=== PATIENT | female | born 1940 | race Caucasian/White ===

== ENCOUNTER 2016-06-28 14:15 | Inpatient (IN) | payer MEDICARE ==
[~2016-06-28] VITALS: Ht 167.6 cm; Wt 147.6 kg
[2016-06-28] VITALS (10 sets, daily range): BP systolic 116–160; BP diastolic 59–69; PULSE 64–100; RESP 18–26; O2SAT 92–96
--- NOTE | 2016-06-28 14:16 | ED.REPORT ---
HPI-General Illness Date of Service June 28, 2016 ED Provider: Arlen Maxwell MD Patient is a 76 year old female with a history of atrial fibrillation and hypertension who presents to the ED due to shortness of breath. Associated symptoms include fever, dyspnea on exertion, weakness, diaphoresis and fatigue for the past 3 days. She denies chest pain. The patient states that her shortness of breath has since resolved. Prior to arrival the patient was in respiratory distress and on C-pap and continues to be on C-pap in the ED. Nursing Notes Stated Complaint: POSS SEPSIS Nursing Notes Reviewed: Yes Allergies: Coded Allergies: iodine (Verified Allergy, Severe, "swelling", 06/28/16) Penicillins (Verified Allergy, Unknown, 06/28/16) Sulfa (Sulfonamide Antibiotics) (Verified Allergy, Unknown, 06/28/16) Dyer (Verified Allergy, Unknown, 06/28/16) coconut (Verified Allergy, Unknown, 06/28/16) latex (Verified Allergy, Unknown, 06/28/16) pineapple (Verified Allergy, Unknown, 06/28/16) Scheduled Aspirin (Aspirin) 325 Mg Tablet 325 MG PO DAILY Atenolol (Atenolol) 25 Mg Tablet 25 MG PO DAILY Atenolol (Atenolol) 25 Mg Tablet 50 MG PO QPM Atorvastatin Calcium (Atorvastatin Calcium) 80 Mg Tablet 80 MG PO HS Chlorthalidone (Chlorthalidone) 25 Mg Tablet 25 MG PO DAILY Cholecalciferol (Vitamin D3) (Vitamin D3) 5,000 Unit Tablet 5,000 UNIT PO DAILY Citalopram (Citalopram) 40 Mg Tablet 40 MG PO DAILY Cranberry Extract (Cranberry) 250 Mg Capsule 250 MG PO DAILY Cyanocobalamin/Folic Acid (Vitamin A64-Xmrgk Acid Tablet) 1 Each Tablet 1 EACH PO DAILY Gluc 2Kcl/Chondr/Jacinto Hy/Hy AC (Glucosamine & Chondroitin Cap) 1 Each Capsule 1 EACH PO DAILY Levothyroxine (Levothyroxine) 150 Mcg Tablet 150 MCG PO DAILY Lisinopril (Lisinopril) 40 Mg Tablet 40 MG PO DAILY Metformin (Metformin) 500 Mg Tablet 1,000 MG PO QAM Metformin (Metformin) 500 Mg Tablet 1,500 MG PO QPM Scheduled PRN Alprazolam (Alprazolam) 0.25 Mg Tablet 0.125 MG PO BID PRN PRN For Anxiety or Agitation Loratadine (Claritin) 10 Mg Capsule 10 MG PO DAILY PRN PRN allergies Ranitidine (Ranitidine) 300 Mg Tablet 300 MG PO HS PRN PRN For Dyspepsia or Heartburn Triamcinolone Acetonide (Nasacort) 10.8 Ml [place] 1 SPRAY NOSTRIL DAILY PRN PRN allergies General Time Seen by MD: 14:16 Chief Complaint Other (shortness of breath) Hx Obtained From: Patient, EMS Arrived By: Ambulance Sudden in Onset?: Yes Onset Occurred: Just prior to arrival Symptom Duration: Since onset Associated with: Reports: Diaphoresis, Weakness Recent Healthcare: No recent hospitalization, Recent doctor visit Past Medical History Past Medical History Reports: Hypertension Reports: Atrial fibrillation Past Surgical History Reports: Hysterectomy Ambulatory Status Wheelchair Review of Systems Full Review of Systems Constitutional: Reports: Fatigue, Fever, Weakness - generalized Respiratory: Reports: Shortness of breath, Denies: Non-productive cough Cardiovascular: Denies: Chest pain, Dyspnea on exertion Skin: Reports Diaphoresis Complete sys rev & neg: except as marked. Physical Exam Vital Signs Vital Signs Date Time Temp Pulse Resp B/P Pulse Ox O2 Delivery O2 Flow Rate FiO2 06/28/16 16:47 73 26 116/59 96 BiPAP 06/28/16 16:06 36.6 81 21 119/67 93 BiPAP 06/28/16 15:31 97 25 140/69 94 BiPAP 06/28/16 14:30 22 93 40 06/28/16 14:23 41 100 26 92 Room Air General/Constitutional: Awake, Alert Appearance / Presentation: Positive: Obese, morbidly, Pale face is flushed aspirates while drinking water from a straw Head / Eyes: Atraumatic, Normocephalic, PERRL, EOMI Resp Distress / Stridor: Positive: Resp distress moderate Wheezing / Retractions: Positive: Wheeze insp/exp diffuse Cardiovascular: Regular rhythm, Heart sounds NL, No murmurs Heart Rate / Rhythm: Positive: Tachycardia Abdomen: Atraumatic, BS normoactive exam was challenging due to patient's obesity Lower Extremity / Pelvis / MS: Atraumatic profusing to her lower extremities 2+ bilateral chronic edema Skin: Atraumatic, Color NL, No rash Color / Condition: Positive: Diaphoresis present Neurologic: Oriented X3, Speech NL, No motor deficits, No sensory deficits globally weak Psychiatric: Affect NL, Mood NL Interpretation & Diagnostics Lab Results Interpretation Result Diagram: 06/29/16 0330 06/29/16 0330 Test 06/28/16 14:23 06/28/16 14:33 06/28/16 15:00 06/28/16 15:13 Total Bilirubin 0.6mg/dL (0.0-1.2) Aspartate Amino Transf (AST/SGOT) 30U/L (0-50) Alanine Aminotransferase (ALT/SGPT) 19U/L (0-32) Alkaline Phosphatase 58U/L (25-165) Troponin T < 0.010ug/L (0.0-0.011) Pro-B-Type Natriuretic Peptide 1376pg/mL (0-738) Total Protein 7.7g/dL (6.4-8.4) Albumin 3.8g/dL (3.4-5.0) Procalcitonin 0.77ng/mL (0.00-0.08) Hemoglobin A1c 6.3% (4.8-5.6) Urine Legionella pneumophilia Ag Negative (Negative) Urine Color Yellow (YELLOW) Urine Appearance Cloudy (CLEAR,HAZY) Urine pH 6.5 (5.0-8.0) Urine Specific [place] 1.020 (1.003-1.035) Urine Protein 300mg/dL (NEG,TRACE) Urine Glucose (UA) Negativemg/dL (NEGATIVE) Urine Ketones Negativemg/dL (NEGATIVE) Urine Occult Blood Large (NEGATIVE) Urine Nitrite Negative (NEGATIVE) Urine Bilirubin Negative (NEGATIVE) Urine Urobilinogen Normalmg/dL (NORMAL) Urine Leukocyte Esterase Large (NEGATIVE) Urine RBC 3-10/hpf (0-2) Urine WBC >50/hpf (0-5) Urine Epithelial Cells Occasional/hpf (NONE-MOD) Urine Crystals None seen (NONE SEEN) Urine Bacteria Few/hpf (NONE-FEW) Urine Hyaline Casts None/lpf (NONE) Urine Granular Casts None seen (NONE SEEN) Urine Waxy Casts None seen (NONE SEEN) Urine Red Blood Cell Casts None seen (NONE SEEN) Urine White Blood Cell Casts None seen (NONE SEEN) Urine Mucus None seen (None Seen) Urine Trichomonas None seen (NONE SEEN) Urine Yeast None (NONE SEEN) Urinalysis Comment None Urine Culture Reflexed Indicated Lab Results Interpretation: BLOOD GAS REPORT: pH 7.36/pCO2 36/pO2 75.5/cHCO3 (P) 19.9/ cBase (B) -4.4 ECG Interpretation ECG Interpretation: no acute ischemia 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 Chronic elevation of the right hemidiaphragm. Dictated by: Wellington Chiang M.D. on 06/28/2016 at 15:03 Approved by: Wellington Chiang M.D. on 06/28/2016 at 15:05 View: Portable, 1 view Interpretation / Wet Read by: Interpret - Radiologist Re-Eval/Medical Decision Med Decision/Clinical Course Patient arrives septic with respiratory failure reportedly having vomiting, right upper quadrant pain over the last few days, as well as associated cough and generalized weakness. I assumed care of this patient prepped the previous physician who had initiated a sepsis workup. Antibiotics were initiated for community-acquired pneumonia after blood cultures were given. Chest x-ray is not concerning for pneumonia, she does have a urinary tract infection which may explain the right-sided flank plain. The case is discussed with the admitting doctor, Augustine Waters, who agrees to come see the patient. Initially CT scans with IV contrast were ordered to better delineate the cause of these symptoms however given the documented contrast allergy the decision is to hold off on these for now and allow the medicine team to evaluate the patient. Time of Eval: 15:30 Re-Evaluation/Progress Note: Blood pressure is 140 systolic, respiratory rate still in the high 20s to low 30s however the patient is comfortable on BiPAP. Repeat history and physical exam performed. Discussed plan for admission and CT scanning. Time of Eval: 15:26 Patient Status: Condition improved Re-Evaluation/Progress Note: Patient is rechecked. She is informed of the plan to obtain a CT and admit to the hospital. All questions are addressed. Consultation : Referral / Consult Name: Abhay Waters MD Consulted With: Hospitalist Call Returned at: 15:10 Tooling Specialist: Will see patient Note: 1611, in ER evaluating patient Counseled Regarding: Diagnosis, Lab results, Need for admission Discharge & Departure Shift Change Sign-Out Patient Care Transferred: Yes Discussed Complaint(s): Yes Laboratory Evaluation: Lab evaluation discussed Imaging Studies: Imaging discussed Primary Impression: Sepsis Additional Impressions: Urinary tract infection Respiratory failure Disposition: ADMITTED TO HOSPITAL Discharge Condition All VS Reviewed: Yes Condition: Stable Referrals: Josy Hines MD (PCP) Care Transferred to: Dr. Spain Care Transferred at: 15:13 Crit Care Except Billable Proc Time Spent: 30-74 minutes Services Performed: Patient management by me, Time spent at bedside, Reviewing test results Critical Care Notes: See MDM Charanjit Attestation Portions of this note were transcribed by Alessandra Lobo and Jerrica Lancaster. I, Dr. Maxwell and Dr. Spain personally performed the history, physical exam and medical decision-making; I reviewed and confirmed the accuracy of the information in the transcribed note. 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 Chronic elevation of the right hemidiaphragm. Dictated by: Wellington Chiang M.D. on 06/28/2016 at 15:03 Approved by: Wellington Chiang M.D. on 06/28/2016 at 15:05 View: Portable, 1 view Interpretation / Wet Read by: Interpret - Radiologist Re-Eval/Medical Decision Med Decision/Clinical Course Patient arrives septic with respiratory failure reportedly having vomiting, right upper quadrant pain over the last few days, as well as associated cough and generalized weakness. I assumed care of this patient prepped the previous physician who had initiated a sepsis workup. Antibiotics were initiated for community-acquired pneumonia after blood cultures were given. Chest x-ray is not concerning for pneumonia, she does have a urinary tract infection which may explain the right-sided flank plain. The case is discussed with the admitting doctor, Augustine Waters, who agrees to come see the patient. Initially CT scans with IV contrast were ordered to better delineate the cause of these symptoms however given the documented contrast allergy the decision is to hold off on these for now and allow the medicine team to evaluate the patient. Time of Eval: 15:30 Re-Evaluation/Progress Note: Blood pressure is 140 systolic, respiratory rate still in the high 20s to low 30s however the patient is comfortable on BiPAP. Repeat history and physical exam performed. Discussed plan for admission and CT scanning. Time of Eval: 15:26 Patient Status: Condition improved Re-Evaluation/Progress Note: Patient is rechecked. She is informed of the plan to obtain a CT and admit to the hospital. All questions are addressed. Consultation : Referral / Consult Name: Abhay Waters MD Consulted With: Hospitalist Call Returned at: 15:10 Tooling Specialist: Will see patient Note: 1611, in ER evaluating patient Counseled Regarding: Diagnosis, Lab results, Need for admission Discharge & Departure Shift Change Sign-Out Patient Care Transferred: Yes Discussed Complaint(s): Yes Laboratory Evaluation: Lab evaluation discussed Imaging Studies: Imaging discussed Primary Impression: Sepsis Additional Impressions: Urinary tract infection Respiratory failure Disposition: ADMITTED TO HOSPITAL Discharge Condition All VS Reviewed: Yes Condition: Stable Referrals: Josy Hines MD (PCP) Care Transferred to: Dr. Spain Care Transferred at: 15:13 Crit Care Except Billable Proc Time Spent: 30-74 minutes Services Performed: Patient management by me, Time spent at bedside, Reviewing test results Critical Care Notes: See MDM Scribe Attestation Portions of this note were transcribed by Alessandra Lobo and Jerrica Lancaster. I, Dr. Maxwell and Dr. Spain personally performed the history, physical exam and medical decision-making; I reviewed and confirmed the accuracy of the information in the transcribed note. Signed by: Charanjit Resendiz, 06/28/16 and 1510 copies to: Josy Hines MD, Shawna L MD June 28, 2016 14:16 Katie Lobo June 28, 2016 14:27 Jazzmine Reed June 28, 2016 14:39 Corey Spain DO June 28, 2016 16:13 JERRICA LANCASTER June 28, 2016 17:20
[2016-06-28] MEDS ORDERED: cefTRIAXone Inj 2,000 MG in Dextrose 5% Minibag Plus 50 ML IV ONE (14:25)
[2016-06-28] MEDS ORDERED: Azithromycin Inj 500 MG in Dextrose 5% w/Vial Mate 250 ML IV ONE (14:25)
[2016-06-28] MEDS ORDERED: Albuterol-Ipratropium 3 mL Inhalation Solution NEB ONE (14:25)
[2016-06-28 14:40] LABS: BASOPHILS % (AUTO) 0.1 % (0-3); EOSINOPHILS % (AUTO) 0.1 % (0-5); MONOCYTES % (AUTO) 12.7 % (4-12); Mean Corpuscular Hemoglobin 27.8 pg (27.0-35.0); Mean Corpuscular Volume 88.5 fL (81-100); NEUTROPHILS % (AUTO) 82.1 % (40-74); Platelet Count 208 bil/L (150-400)
--- NOTE | 2016-06-28 15:06 | ABG ---
DateTimeAnalyzed 14:59:00 -_ pH ____7.360 - 7.350 7.450 pCO2 ___36.1__ -mmHg 35.0 45.0 pO2 ___75.5__ -mmHg 69.0 116 HCO3- ___19.9__ -mmol/L 22.0 26.0 ABE ___-4.4__ -mmol/L -2.0 2.0 tHb ___11.7__ -g/dL O2Hb ___93.5__ -% COHb ____1.0__ -% MetHb ____1.1__ -% sO2 ___95.5__ -% FIO2 ___40.0__ -% CPAP ___10.0__ -cmH2O PEEP ____5.0__ -cmH2O Drawn By jj - Date/Time Notified____ 15:05:00 -_ Spontaneous_RR ___34.0__ -b/min Oxygen Device 1 ____BIPAP - Notified By jj - Notified Whom Dr Laursen - B 760 -mmHg tO2 ___15.4__ -Vol% Seb test _Positive -
--- NOTE | 2016-06-28 15:06 | DRSVH ---
PROCEDURE: X-RAY CHEST ONE VIEW, PORTABLE ([id number]) INDICATIONS: dyspnea TECHNIQUE: One view of the chest was acquired. COMPARISON: [facility], , CHEST 1VW (PORTABLE), 12/31/2012, 23:03. FINDINGS: Surgical changes and devices: None. Lungs and pleura: There is chronic elevation of the right hemidiaphragm. Bibasilar densities are lik jimbo discoid atelectasis. No pleural effusions or pneumothorax. Mediastinum: Mediastinal contours appear normal. Heart size is normal. Bones and chest wall: No suspicious bony lesions. Overlying soft tissues appear unremarkable. Mode rate to severe shoulder joint degeneration bilaterally. IMPRESSION: No acute cardiopulmonary disease. Chronic elevation of the right hemidiaphragm. Dictated by: Wellington Chiang M.D. on 06/28/2016 at 15:03 Approved by: Wellington Chiang M.D. on 06/28/2016 at 15:05
[2016-06-28 15:15] LABS: TROPONIN T < 0.010 ug/L (0.0-0.011)
[2016-06-28 15:33] LABS: APPEARANCE,URINE CLOUDY (CLEAR,HAZY); COLOR,URINE YELLOW (YELLOW); OCCULT BLOOD,URINE LARGE (NEGATIVE); PH,URINE 6.5 (5.0-8.0); UROBILINOGEN,URINE NORMAL (NORMAL)
[2016-06-28] MEDS ORDERED: 0.9% Sodium Chloride 1,000 ML IV SCH ×2 (15:35→15:38)
[2016-06-28] MEDS ORDERED: Vancomycin Dose per Pharmacist XX ONE (15:40)
[2016-06-28] MEDS ORDERED: Alum-Mag Hydrox-Simeth 30 mL Suspension PO PRN (15:40)
[2016-06-28] MEDS ORDERED: Dextrose 10% 250 ML IV ONE (15:40)
[2016-06-28] MEDS ORDERED: Polyethylene Glycol (PEG) 17 Gm Powder PO PRN (15:40)
[2016-06-28] MEDS ORDERED: Glucose 40% Oral Gel 15 Gm Tube PO PRN (15:40)
[2016-06-28] MEDS ORDERED: HYG25 PO (15:55)
[2016-06-28] MEDS ORDERED: LEVO150T5 PO (15:55)
[2016-06-28] MEDS ORDERED: METF500T4 PO ×2 (15:55)
[2016-06-28] MEDS ORDERED: ALPR0.254 PO (15:55)
[2016-06-28] MEDS ORDERED: GLUC-120 PO (15:55)
[2016-06-28] MEDS ORDERED: LISI40TA PO (15:55)
[2016-06-28] MEDS ORDERED: CITA40TA13 PO (15:55)
[2016-06-28] MEDS ORDERED: CHOL500011 PO (15:55)
[2016-06-28] MEDS ORDERED: TRIA10.8 NOSTRIL (15:55)
[2016-06-28] MEDS ORDERED: ASPI325T32 PO (15:55)
[2016-06-28] MEDS ORDERED: RANI300T4 PO (15:55)
[2016-06-28] MEDS ORDERED: ATOR80TA77 PO (15:55)
[2016-06-28] MEDS ORDERED: ATEN25TA PO ×2 (15:55)
[2016-06-28] MEDS ORDERED: CRAN250C2 PO (15:55)
[2016-06-28] MEDS ORDERED: LORA10CA PO (15:55)
[2016-06-28] MEDS ORDERED: CYAN1TAB42 PO (15:55)
[2016-06-28] MEDS ORDERED: Vancomycin Inj 2,000 MG in 0.9% Sodium Chloride 500 ML IV ONE (16:00)
[2016-06-28] MEDS: Vancomycin Dose per Pharmacist XX SCH (16:11)
[2016-06-28] MEDS ORDERED: Magnesium Sulf 2 Gm/50mL Water 2 GM in IV Premix 1 EACH IV ONE (16:15)
[2016-06-28] MEDS: Insulin LISPRO 300 Unit/3 mL Inj SUBQ SCH ×2 (17:30→20:48)
--- NOTE | 2016-06-28 18:07 | PCM.CONPHA ---
Assessment/Plan Assessment/Plan Pharmacy Kinetic Dosing Vancomycin Indication: SEPSIS Vanc goal trough: 15-20 mcg/mL Pt wt: 127.3 kg Other ABX: ROCEPHIN Cultures: Blood PENDING SCr: 1.35 mg/dL Assessment/Plan: - Loading dose of Vancomycin 2000 mg given in ED -Will continue Vancomycin 1500 mg Q24H with trough scheduled prior to 4th dose on June @1430. Dosing high due to aggressive treatment of sepsis in this elderly woman. Pharmacy appreciates consult and will continue to monitor. Mana Zaldivar PharmD June 28, 2016 18:07
--- NOTE | 2016-06-28 18:34 | PCM.HPMED ---
Subjective Date of Service June 28, 2016 Primary Provider: Admitting Physician: Abhay Waters MD Primary Care Physician: Josy Hines MD Attending Physician: Abhay Waters MD Chief Complaint: Fall History of Present Illness: Brit Larsen is a morbidly obese 76 year old woman with past medical history significant for hypertension and pre-diabetes who presented to the [facility] ED due to a fall today. The patient is accompanied by her who assisted in history gathering. The patient states that she has felt sick for the last several days and has been feeling run down and weak. She is normally wheelchair bound due to bilateral knee replacements that are in poor repair. The patient is usually able to transition from her wheelchair by herself but in the last several days the patient has not been able to do so. The patient noted a subjective fever this morning as well as dyspnea and diaphoresis this morning. She also noted abdominal pain that was worst in her pelvis. She did note back pain, but this is chronic for her. She denied any dysuria. The patient denies any chest pain, palpitations, skin rashes. She denies any sick contacts. In the ED her vitals showed an elevated temperature of 41 C, pulse of 100, respiratory rate of 26 with good O2 saturation on room air. The patient appeared in respiratory distress and was placed on BPAP. She was also given ceftriaxone and azithromycin for a presumed PNA. Review of Systems: A comprehensive review of systems was conducted with the patient and found to be negative except as above in the History of Present Illness. Allergies Coded Allergies: iodine (Verified Allergy, Severe, "swelling", 06/28/16) Penicillins (Verified Allergy, Unknown, 06/28/16) Sulfa (Sulfonamide Antibiotics) (Verified Allergy, Unknown, 06/28/16) [place] (Verified Allergy, Unknown, 06/28/16) coconut (Verified Allergy, Unknown, 06/28/16) latex (Verified Allergy, Unknown, 06/28/16) pineapple (Verified Allergy, Unknown, 06/28/16) Home Medications Scheduled Aspirin (Aspirin) 325 Mg Tablet 325 MG PO DAILY Atenolol (Atenolol) 25 Mg Tablet 25 MG PO DAILY Atenolol (Atenolol) 25 Mg Tablet 50 MG PO QPM Atorvastatin Calcium (Atorvastatin Calcium) 80 Mg Tablet 80 MG PO HS Chlorthalidone (Chlorthalidone) 25 Mg Tablet 25 MG PO DAILY Cholecalciferol (Vitamin D3) (Vitamin D3) 5,000 Unit Tablet 5,000 UNIT PO DAILY Citalopram (Citalopram) 40 Mg Tablet 40 MG PO DAILY Cranberry Extract (Cranberry) 250 Mg Capsule 250 MG PO DAILY Cyanocobalamin/Folic Acid (Vitamin G25-Ubjmc Acid Tablet) 1 Each Tablet 1 EACH PO DAILY Gluc 2Kcl/Chondr/Jacinto Hy/Hy AC (Glucosamine & Chondroitin Cap) 1 Each Capsule 1 EACH PO DAILY Levothyroxine (Levothyroxine) 150 Mcg Tablet 150 MCG PO DAILY Lisinopril (Lisinopril) 40 Mg Tablet 40 MG PO DAILY Metformin (Metformin) 500 Mg Tablet 1,000 MG PO QAM Metformin (Metformin) 500 Mg Tablet 1,500 MG PO QPM Scheduled PRN Alprazolam (Alprazolam) 0.25 Mg Tablet 0.125 MG PO BID PRN PRN For Anxiety or Agitation Loratadine (Claritin) 10 Mg Capsule 10 MG PO DAILY PRN PRN allergies Ranitidine (Ranitidine) 300 Mg Tablet 300 MG PO HS PRN PRN For Dyspepsia or Heartburn Triamcinolone Acetonide (Nasacort) 10.8 Ml [place] 1 SPRAY NOSTRIL DAILY PRN PRN allergies PMH Hypertension Obesity Pre-diabetes Hyperlipidemia Depression/anxiety Hypothyroidism Surgical History Hysterectomy Family History Family history of heart failure. Social History Hx Alcohol Use: No Hx Substance Use: No Hx Tobacco Use: Yes Smoking Status: Former Smoker (patient smoked for approximately 10 years in her 20s.) Exam Vital Signs Vital Sign - Last Date Time Temp Pulse Resp B/P Pulse Ox O2 Delivery O2 Flow Rate FiO2 06/28/16 16:47 73 26 116/59 96 BiPAP 06/28/16 16:06 36.6 06/28/16 14:30 40 Exam General: No acute distress, obese woman laying in a ER bed. With BiPAP on face. HEENT: Normocephalic, atraumatic. External ears without defect. Pupils equal, round, and reactive to light and accommodation. Anicteric sclerae, moist conjunctivae, and no lid lag. Oropharynx free of erythema and cobble stoning with moist mucosa. Neck: Supple with full range of motion. No jugular venous distension however exam is limited due to body habitus. No lymphadenopathy or thyromegaly. Cardiovascular: Distant heart sounds, no obvious murmurs appreciated, however exam is limited due to body habitus. Pulmonary: Clear to auscultation bilaterally with no crackles, wheezes, or rhonchi however exam is limited due to body habitus. Normal respiratory effort with no use of accessory muscles. Abdomen: Obese. Pannus hanging over left-side. Bowel tones were not auscultated due to body habitus. Soft, nontender, nondistended. No hepatosplenomegaly or masses could be appreciated Extremities: Bilateral lower extremity lymphedema Skin: Normal temperature, turgor, and texture; no rash, ulcers, or subcutaneous nodules appreciated. Neurological: Cranial nerves grossly intact. Normal muscle strength, tone, and bulk. Reflexes, coordination, and sensory function within normal limits. Patient is wheelchair-bound. Psychiatric: Normal mood and affect. Alert and oriented to person, place, and time. Back: Patient could not discharge her sides, CVA tenderness could not be assessed. Lab and Diagnostics Labs Laboratory Tests Test 06/28/16 15:13 Urine Color Yellow Urine Appearance Cloudy Urine pH 6.5 Urine Specific [place] 1.020 Urine Protein 300mg/dL Urine Glucose (UA) Negativemg/dL Urine Ketones Negativemg/dL Urine Occult Blood Large Urine Nitrite Negative Urine Bilirubin Negative Urine Urobilinogen Normalmg/dL Urine Leukocyte Esterase Large Urine RBC 3-10/hpf Urine WBC >50/hpf Urine Epithelial Cells Occasional/hpf Urine Crystals None seen Urine Bacteria Few/hpf Urine Hyaline Casts None/lpf Urine Granular Casts None seen Urine Waxy Casts None seen Urine Red Blood Cell Casts None seen Urine White Blood Cell Casts None seen Urine Mucus None seen Urine Trichomonas None seen Urine Yeast None Urinalysis Comment None Urine Culture Reflexed Indicated Result Diagram: 06/28/16 1423 06/28/16 1423 X-Rays, CTs and MRIs X-RAY CHEST ONE VIEW, PORTABLE IMPRESSION: No acute cardiopulmonary disease. Chronic elevation of the right hemidiaphragm. Dictated by: Wellington Chiang M.D. on 06/28/2016 at 15:03 Assessment & Plan Brit Larsen is a morbidly obese 76 year old woman with past medical history significant for hypertension and pre-diabetes who presented to the [facility] ED due to a fall today. Severe sepsis secondary to complicated pyelonephritis -Patient meets SIRS criteria with HR of 100, T of 41, lactic acid of 4.2, procalcitonin of 0.77 -Urine culture sent, blood cultures obtained -Patient will be initiated on Vancomycin and Ertapenem give the high incidence of community acquired ESBL with plan to tailor antibiotic to pathogen -Aggressive fluid resuscitation initiated in the ER. Patient will need to be reassessed after her third liter as she does have an echocardiogram from 2013 which shows some diastolic dysfunction. -Continue to trend lactic acid until normal. High anion gap metabolic acidosis secondary to lactic acid -And gap of 23 -As above -Repeat BMP in the morning Acute respiratory failure in the setting of likely chronic respiratory failure secondary to obesity hypoventilation syndrome -Likely her tachypnea and increased work of breathing was secondary to severe sepsis -Patient currently on BiPAP however, her ABG is largely unremarkable -Consider titrating BiPAP off tomorrow if patient's oxygenation remains good -Patient will likely require minimum CPAP at night. -Consider outpatient sleep study. 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 VTE Prophylaxis: Sub-Q Heparin (Unfractionated) Resuscitation Status: DNR/DNI:Do Not Resuscitate/Intubate Time spent 70 minutes Attending Statement I interviewed and examined the patient at time of admission. I agree with the assessment and plan as stated above. Sadie Centeno DO June 28, 2016 18:34 Abhay Waters MD June 30, 2016 07:14
[2016-06-28] MEDS ORDERED: 0.9% Sodium Chloride 1,000 ML IV ONE (18:45)
[2016-06-28] MEDS ORDERED: Non-Formulary Medication (Ranitidine 300 MG) PO PRN (19:00)
[2016-06-28] MEDS: Sodium Chloride LOK Flush 10 mL Syringe IVFLUSH SCH ×2 (19:19→22:41)
[2016-06-28] MEDS: 0.9% Sodium Chloride 1,000 ML IV SCH ×2 (19:24→22:41)
[2016-06-28] MEDS: ALPRAZolam 0.25 mg Tablet PO SCH (20:40)
[2016-06-28] MEDS: Heparin 5,000 Unit/mL Inj SUBQ SCH ×2 (20:41→22:41)
[2016-06-28] MEDS: Ertapenem Inj 1,000 MG in 0.9% Sodium Chloride 50 ML IV SCH (20:41)
[2016-06-28] MEDS: Insulin GLARgine 100 Unit/mL Syringe SUBQ SCH (20:48)
[2016-06-28] MEDS ORDERED: Dextrose 10% 250 ML IV PRN (21:10)
[2016-06-29] VITALS (7 sets, daily range): BP systolic 149–162; BP diastolic 72–85; PULSE 66–84; RESP 18–22; O2SAT 94–97
[2016-06-29] MEDS: 0.9% Sodium Chloride 1,000 ML IV SCH ×3 (03:21→20:17)
[2016-06-29 04:06] LABS: BASOPHILS % (AUTO) 0.2 % (0-3); EOSINOPHILS % (AUTO) 0 % (0-5); MONOCYTES % (AUTO) 13.2 % (4-12); Mean Corpuscular Hemoglobin 27.7 pg (27.0-35.0); Mean Corpuscular Volume 89.6 fL (81-100); NEUTROPHILS % (AUTO) 77.5 % (40-74); Platelet Count 169 bil/L (150-400)
--- NOTE | 2016-06-29 05:56 | NUR ---
NOC: Vitals stable. Sp02 maintained on 2 L NC. When sleeping hard pt does have periods of apnea where she desats into the low 60s and then recovers. NS infusing per orders, vipul in place. Pt transferred to bariatric bed- movement limited- pt at times reluctant to care/ turns, despite education.
[2016-06-29] MEDS: Insulin LISPRO 300 Unit/3 mL Inj SUBQ SCH ×4 (08:00→22:00)
[2016-06-29] MEDS: Vancomycin Dose per Pharmacist XX SCH (08:30)
[2016-06-29] MEDS: ALPRAZolam 0.25 mg Tablet PO SCH ×2 (09:42→20:46)
[2016-06-29] MEDS: Heparin 5,000 Unit/mL Inj SUBQ SCH ×3 (09:42→23:59)
[2016-06-29] MEDS: Sodium Chloride LOK Flush 10 mL Syringe IVFLUSH SCH ×2 (09:43→14:12)
--- NOTE | 2016-06-29 13:41 | PCM.PNMED ---
Subjective Date of Service June 29, 2016 Subjective Brit Larsen is a morbidly obese 76 year old woman with past medical history significant for hypertension and pre-diabetes who presented to the [facility] ED due to a fall. Currently under treatment for sepsis secondary to pyelonephritis. Hospital day #2. Overnight: No acute events. Today: The patient states that she is feeling better. She is stating that her breathing has normalized and she did not use her BiPAP overnight. She does note some back pain but this is normal for her. She denies any fevers, chills, nausea. She does note that her stomach and a little bit upset after her meal. The remainder of review of systems is negative except as noted above. Exam Vital Signs Vital Sign - Last Date Time Temp Pulse Resp B/P Pulse Ox O2 Delivery O2 Flow Rate FiO2 06/29/16 11:07 77 06/29/16 08:56 37.6 22 158/72 94 Nasal Cannula 2.00 06/28/16 14:30 40 Intake and Output 06/28/16 06/28/16 06/29/16 Cumulative From/Thru 15:00 23:00 07:00 06/28/16 14:23 - 06/29/16 05:16 Intake Total 2000 ml 1557 ml 3557 ml Output Total 125 ml 1650 ml 1775 ml Balance 1875 ml -93 ml 1782 ml Intake Oral 300 ml 300 ml IV Total 2000 ml 1257 ml 3257 ml Output Urine Total 125 ml 1650 ml 1775 ml # Bowel Movements 0 0 Exam General: No acute distress, obese woman laying in hospital bed. HEENT: Normocephalic, atraumatic. External ears without defect. Pupils equal, round, and reactive to light and accommodation. Anicteric sclerae, moist conjunctivae, and no lid lag. Oropharynx free of erythema and cobble stoning with moist mucosa. Neck: Supple with full range of motion. No jugular venous distension however exam is limited due to body habitus. No lymphadenopathy or thyromegaly. Cardiovascular: Distant heart sounds, no obvious murmurs appreciated, however exam is limited due to body habitus. Pulmonary: Clear to auscultation bilaterally with no crackles, wheezes, or rhonchi however exam is limited due to body habitus. Normal respiratory effort with no use of accessory muscles. Abdomen: Obese. Pannus hanging over left-side. Bowel tones were not auscultated due to body habitus. Soft, nontender, nondistended. No hepatosplenomegaly or masses could be appreciated Extremities: Bilateral lower extremity lymphedema Skin: Normal temperature, turgor, and texture; no rash, ulcers, or subcutaneous nodules appreciated. Neurological: Cranial nerves grossly intact. Normal muscle strength, tone, and bulk. Reflexes, coordination, and sensory function within normal limits. Patient is wheelchair-bound. Psychiatric: Normal mood and affect. Alert and oriented to person, place, and time. Back: Patient could not discharge her sides, CVA tenderness could not be assessed. IVs and Medications Medications Reviewed: Medications were reviewed in detail Lab and Diagnostics Result Diagram: 06/29/1632906/29/16329 Microbiology Blood culture growing gram-negative rods. Urine culture growing gram-negative rods probably Proteus. Sensitivities to follow. X-Rays, CTs and MRIs X-RAY CHEST ONE VIEW, PORTABLE IMPRESSION: No acute cardiopulmonary disease. Chronic elevation of the right hemidiaphragm. Dictated by: Wellington Chiang M.D. on 06/28/2016 at 15:03 Assessment & Plan Brit Larsen is a morbidly obese 76 year old woman with past medical history significant for hypertension and pre-diabetes who presented to the [facility] ED due to a fall. Currently under treatment for sepsis secondary to pyelonephritis. Hospital day #2. Severe sepsis secondary to complicated pyelonephritis with Proteus as likely pathogen with probable bacteremia, present on admission, active -Patient meets SIRS criteria with HR of 100, T of 41, lactic acid of 4.2, procalcitonin of 0.77. -MRSA swab negative. Vancomycin DC'd. -Ertapenem started give the high incidence of community acquired ESBL with plan to tailor antibiotic to pathogen. Await final organism identification and susceptibilities. -Infectious disease consultation obtained. We will follow recommendations. High anion gap metabolic acidosis secondary to lactic acid, present on admission , resolved. -And gap of 23, 15 this morning Acute respiratory failure in the setting of likely chronic respiratory failure secondary to obesity hypoventilation syndrome, present on admission, resolved. -Likely her tachypnea and increased work of breathing was secondary to severe sepsis -BiPAP as needed during sleep. -Consider outpatient sleep study. 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 VTE Prophylaxis: Sub-Q Heparin (Unfractionated) Resuscitation Status: DNR/DNI:Do Not Resuscitate/Intubate Time spent 35 minutes Attending Statement I interviewed and examined the patient on rounds today. I agree with the assessment and plan as stated above. Sadie Centeno DO June 29, 2016 13:23 Abhay Waters MD June 29, 2016 16:59
--- NOTE | 2016-06-29 14:25 | NUR ---
TELE/GI upset The pt is on sepsis protocol with IV fluids and ABX - labs and vitals are trending better. TELE Sinus rhythm with some mild GI upset relieved by calcium carbonate.
--- NOTE | 2016-06-29 14:58 | CONS ---
[address] [address] CONSULTATION REPORT PATIENT: GERONIMO MCDWOELL : 1940 MR#: [id number] ADMIT: 06/28/2016 JOB ID: [id number] DATE OF SERVICE: 06/29/2016 INFECTIOUS DISEASE CONSULTATION: I thank Dr. Centeno for this timely consult. REASON FOR CONSULTATION: Bacteremic complicated urinary tract infection. HISTORY OF PRESENT ILLNESS: The patient is a 76-year-old woman who is morbidly obese and has had bilateral knee replacements which were done about 19 years ago in [place], [place]. Though these are considered "successful," the patient really cannot ambulate and is only able to get from bed to chair to wheelchair using her lower extremities. She also suffers from hypertension and diabetes in addition to the morbid obesity with limited mobility. Despite all this, she does not use a Vallejo catheter and is able to get from the wheelchair to toilet without difficulty usually. More recently, over the past five days, she has developed some progressive and profound weakness and has had trouble making these important transfers. She notes that she has been incontinent of urine a couple times but denies dysuria, urgency or frequency per se. She has noticed the development of fevers, chills, generalized weakness and malaise as our primary symptoms. She denies sore throat, cough, symptoms of pulmonary disease, nausea, vomiting or diarrhea. She states she has had urinary tract infections in the past as a young woman but not later in life. She was admitted yesterday and appropriately cultured and started on broad-spectrum antibiotics. Because of concerns about community-acquired ESBL organisms, the house staff wisely started this patient on ertapenem when they heard that her blood cultures were positive and have kindly asked me to consult. PAST MEDICAL HISTORY: 1. 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 2. Hypertension. 3. Diabetes. 4. Morbid obesity. 5. Anxiety and depression. SOCIAL HISTORY: The patient lives in [place] with her spouse. She does not smoke cigarettes though she did in the very distant past almost half a century ago. She does not drink alcohol and does not travel widely. FAMILY HISTORY: Negative for tuberculosis first or second-degree relatives. REVIEW OF SYSTEMS: The patient has no significant headache, visual complaints, sore throat, trouble swallowing, cough, shortness of breath, chest pain, nausea, vomiting, diarrhea, and also does not have any dysuria though she has had some episodes of urinary incontinence the last few days. Her knees are not especially painful but they are stiff and do not function well enough to allow much mobility. No skin rash has been reported. Remainder of the review of systems negative. PHYSICAL EXAMINATION: Reveals a morbidly obese woman who is awake, conversational and friendly. Her BMI is 45. Her temperature 37.6, pulse 77, respiratory rate 22, blood pressure 158/72, saturating well but requiring 2 L of oxygen and she does not use oxygen at home. Remarkably she had a temperature of 41 degrees when she came through the ED yesterday afternoon just about exactly 24 hours ago. That was her last fever. The patient this afternoon is engaged, oriented and helpful with respect to history. There is no temporal wasting. Her eyes without conjunctivitis, scleral icterus. Nose is normal. Oral cavity: No thrush or hairy leukoplakia. Neck is hard to examine because of her obesity but not grossly stiff nor with notable abnormality. Lungs relatively clear but heart sounds very distant but without appreciable murmur and she does have a regular rate and rhythm. Abdomen quite obese. No organomegaly is appreciated. No ascites. She does not have a Vallejo catheter. She has a Vallejo catheter that was installed when she was admitted. Examination of the knees reveals very large 20+ cm scars both sides where her knee replacements were done some 19 years ago. There is no warmth or tenderness to either knee and certainly not appear to be chronically infected. She has some lower extremity edema but no skin rashes noted. No obvious synovitis. Neurologically she is intact but limited in her ambulatory abilities. LABORATORIES: Include white count 11.4, platelets normal at 69. Creatinine 1.38. Calculated GFR is 50 which is probably about right. Urinalysis greater than 50 white cells, and the urine culture is growing a Proteus species greater than 100,000 colonies, 1/4 blood cultures is also growing a gram-negative jae. We do not have the identity on that yet. Urine pneumococcal antigen and urine Legionella antigen were negative. Chest x-ray shows no infiltrate. The patient does have a chronic elevation of the right hemidiaphragm. IMPRESSION: This elderly obese woman has bacteremic complicated urinary tract infection. This is apparently her first significant urinary tract infection in multiple decades so this does not fit any kind of pattern for her. Whether or not this is an ESBL type organism will be established tomorrow when we have the susceptibilities but until then I definitely agree with continuing with ertapenem. Given that it is her first urinary tract infection from her later phase of her adult life, I am not certain that a formal urologic evaluation is indicated, but given the severity of this infection with positive blood cultures and 41 degree fevers, I do not think a urologic evaluation would be a bad idea. Also note that the patient is diabetic and had an unusual presentation in that she did not have any dysuria, urgency, or frequency which makes it difficult to detect infections in their earliest stage. RECOMMENDATIONS: 1. I would continue with ertapenem until we have susceptibilities. 2. If it is susceptible to Cipro or similar oral agents by discharge tomorrow I will put on oral treatment if she continues to look well. 3. If this is more of any ESBL organism, we may need to arrange for 10 days or so of IV outpatient therapy. 4. Referral to urology as an outpatient is probably reasonable in this patient with only one recent UTI but one that was life-threatening in its presentation. 5. Will go ahead and stop vancomycin and will see this patient with you tomorrow. SHANNA
[2016-06-29] MEDS ORDERED: cefTRIAXone Inj 2,000 MG in Dextrose 5% Minibag Plus 50 ML IV SCH (15:00)
--- NOTE | 2016-06-29 16:12 | NUR ---
Social Work Note: Initial Assessment Data& Assessment: EMR reviewed. SW met with pt at bedside to discuss discharge planning, SW role explained. SW phone number provided on pt white board. Brit Larsen is a 76 year old female admitted on 06/28/2016 for sepsis. Pt has Medicare and [employer] insurance incoverage. Pt sees Josy Hines MD for primary care. Pt lives in [place] with her Az Larsen ). Pt is independent with ADL's but does use a manual wheelchair for ambulation assistance. Pt lives in a one story home with a ramp. Pt provides transportation to appointments. Pt does not have HH or SNF hx. Pt does have LTC insurance. Pt does not have VA benefits. Pt has DPOA paperwork at home and has an appointment this week to have it notarized. Pt normally does not require oxygen at home and is currently needing it during this hospitalization. Pt denies any needs at this time. SW to continue to follow for discharge planning needs and MD orders. Plan: Anticipated discharge home via POV when medically ready. Pt denies any needs at this time. SW to continue to follow for discharge planning needs and MD orders. CLEMENT Schwartz Addendum: 06/29/16 at 1617 by MILTON CABAN Amended: Links added.
[2016-06-29] MEDS ORDERED: Vancomycin Inj 1,500 MG in 0.9% Sodium Chloride 500 ML IV SCH (16:30)
[2016-06-29] MEDS: Ertapenem Inj 1,000 MG in 0.9% Sodium Chloride 50 ML IV SCH (19:26)
[2016-06-29] MEDS: Insulin GLARgine 100 Unit/mL Syringe SUBQ SCH (22:14)
[2016-06-30] MEDS: Ondansetron 2 mg/mL 2 mL Inj IVPUSH PRN ×2 (00:25→03:46)
[2016-06-30 03:05] LABS: BASOPHILS % (AUTO) 0.1 % (0-3); EOSINOPHILS % (AUTO) 0 % (0-5); MONOCYTES % (AUTO) 13.8 % (4-12); Mean Corpuscular Hemoglobin 27.5 pg (27.0-35.0); NEUTROPHILS % (AUTO) 80.6 % (40-74); Platelet Count 201 bil/L (150-400)
[2016-06-30 03:25] VITALS: BP 181/100; PULSE 75; RESP 24; O2SAT 93
[2016-06-30] MEDS: Sucralfate 1,000 mg Tablet PO SCH ×5 (03:47→21:20)
[2016-06-30] MEDS: 0.9% Sodium Chloride 1,000 ML IV SCH (03:52)
--- NOTE | 2016-06-30 06:34 | NUR ---
reflux/hypertension pt reported that she has reflux gave Tums and Pepcid pt then vomiting a small amount of brownish liquid, pt still reports no nausea even with vomiting, gave zofran and maalox. pts BP elevated, called hospitalist to inform him of elevated BP and vomiting, received order for Norvasc 10mg PO and Carafate 1000mg gave both and another dose of zofran, pt still denies any nausea but keeps vomiting small amounts of brownish liquid pt thinks its the brown gravy from last night. pt sitting in chair position in bed, emsis bag beside her.
--- NOTE | 2016-06-30 06:51 | NUR ---
potassium pts potassium this morning 3.3 notified no new orders received
[2016-06-30] MEDS: Insulin LISPRO 300 Unit/3 mL Inj SUBQ SCH ×4 (08:00→22:00)
[2016-06-30] MEDS ORDERED: Potassium Chloride 20 mEq SR Tablet PO ONE (08:05)
--- NOTE | 2016-06-30 08:34 | PROG NOTE ---
[address] [address] PROGRESS NOTE PATIENT: GERONIMO MCDOWELL : 1940 MR#: [id number] ADMIT: 06/28/2016 JOB ID: [id number] DATE: 06/30/2016 INFECTIOUS DISEASE FOLLOW UP NOTE: REASON FOR FOLLOWUP: Bacteremic Proteus urinary tract infection in a morbidly obese woman. INTERVAL HISTORY: The patient tells us that last night she suffered a setback. She said she may have over indulged on a combination of mashed potatoes with gravy and turkey and that this resulted in what she says was "the worst heartburn in my life." This was associated perhaps with a bit of increased shortness of breath but no chest pain. She also notes that she may have had some mild diaphoresis through the night following this episode. She has had no more high spiking fevers, nor chills. 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 The heartburn has subsided overnight. No vomiting. No diarrhea. She has a Vallejo catheter in place now which she does not ordinarily have at home and, therefore, has no dysuria. PHYSICAL EXAMINATION: Reveals an afebrile woman, at this point 37 degrees. She was as high as 38 yesterday evening. Pulse 75, respiratory rate 24, blood pressure is an impressive 181/100, which is by far the highest of her admission. Her mean arterial pressure is 127 which correlates with short-term mortality. Mental status is clear. The patient appears a bit short of breath just looking at her, though she denies that and respiratory rate is in the mid 20s. Oral cavity unremarkable. Lungs fairly distant with some wheezes. Cardiac tones: Regular rate and rhythm. I did not appreciate any gallops or murmurs. Abdomen is just large, obese and she does have some mild suprapubic tenderness and a Vallejo is still present. No skin rashes noted. LABORATORIES: Include white count moderating now 10,800, still 80% segs, however. Creatinine 1.05, which is considerably improved. LFTs are normal. Urinalysis had packed white cells, and has grown Proteus mirabilis. Proteus is sensitive to all standard agents including very sensitive to Cipro, levo and Bactrim. The blood culture is growing Proteus as well which we assume will be the same organism but the antibiogram will not be out until tomorrow. MRSA screen was negative. No new imaging is available. IMPRESSION: This patient has a bacteremic Proteus urinary tract infection. At this point, we can go ahead and switch from ertapenem which we had instituted because of the possibility of an ESBL organism to oral Cipro in high doses. If the patient tolerates the oral Cipro and we get back the final antibiogram on the blood tomorrow and it is congruent with the one on the urine, we can likely send her home in the very near future from an ID perspective. The other concern here is her severe epigastric pain and hypertension with the diaphoresis during the night. The patient tells us unequivocally this is the worst heartburn she has ever experienced. This was in association with some not drenching but mild diaphoresis as well as a spike in her blood pressure and all these factors raise the possibility of a myocardial ischemia or infarction. RECOMMENDATIONS: 1. Will switch from ertapenem to oral Cipro in preparation for probable discharge in the next day or two. 2. Troponins x2 have been ordered. 3. An EKG has been ordered. 4. Will notify the primary team of our concerns about cardiac disease.
[2016-06-30] MEDS: ALPRAZolam 0.25 mg Tablet PO SCH ×2 (09:23→21:20)
[2016-06-30] MEDS: Sodium Chloride LOK Flush 10 mL Syringe IVFLUSH SCH ×3 (09:23→16:57)
[2016-06-30] MEDS: Heparin 5,000 Unit/mL Inj SUBQ SCH ×2 (09:25→16:57)
[2016-06-30 09:26] VITALS: BP 174/93; PULSE 63; RESP 22; O2SAT 95
[2016-06-30 11:15] VITALS: PULSE 78
[2016-06-30 12:14] VITALS: BP 161/85; PULSE 75; RESP 22; O2SAT 93
--- NOTE | 2016-06-30 13:10 | NUR ---
Activity Patient continued to refuse to be turned or repositioned in bed. Patient was reluctant and unwilling to help with turning as well. Patient was offered turning Q2h. patient and her present in the room were both instructed/educated on the importance and benefits of turning/repositioning. MD was made aware about patients decreased activity level and will consider PT evaluation.
--- NOTE | 2016-06-30 13:11 | NUR ---
Low potassium Potassium this morning at 3.3- MD aware and ordered PO potassium replacement. Labs in am- continue assessment.
--- NOTE | 2016-06-30 13:26 | PCM.PNMED ---
Subjective Date of Service June 30, 2016 Subjective Brit Larsen is a morbidly obese 76 year old woman with past medical history significant for hypertension and pre-diabetes who presented to the [facility] ED due to a fall. Currently under treatment for sepsis secondary to pyelonephritis. Hospital day #3. Overnight: Patient had a brief episode of vomiting. Today: The patient states that she feels quite tired this morning because she did not have a restful night. She states that her stomach was very upset and she vomited once. Mylanta helped her stomach. She denies any shortness of breath, chest pain, jaw pain, chest pressure. The remainder of review of systems is negative except as noted above. Exam Vital Signs Vital Sign - Last Date Time Temp Pulse Resp B/P Pulse Ox O2 Delivery O2 Flow Rate FiO2 06/30/16 12:14 36.6 75 22 161/85 93 Nasal Cannula 1.00 06/28/16 14:30 40 Intake and Output 06/29/16 06/29/16 06/30/16 Cumulative From/Thru 15:00 23:00 07:00 06/28/16 14:23 - 06/30/16 06:32 Intake Total 1750 ml 3500 ml 8807 ml Output Total 1300 ml 1350 ml 4425 ml Balance 450 ml 2150 ml 4382 ml Intake Oral 1750 ml 480 ml 2530 ml IV Total 3020 ml 6277 ml Output Urine Total 1300 ml 1200 ml 4275 ml Emesis 150 ml 150 ml # Bowel Movements 0 Exam General: No acute distress, obese woman laying in hospital bed. HEENT: Normocephalic, atraumatic. External ears without defect. Pupils equal, round, and reactive to light and accommodation. Anicteric sclerae, moist conjunctivae, and no lid lag. Oropharynx free of erythema and cobble stoning with moist mucosa. Neck: Supple with full range of motion. No jugular venous distension however exam is limited due to body habitus. No lymphadenopathy or thyromegaly. Cardiovascular: Distant heart sounds, no obvious murmurs appreciated, however exam is limited due to body habitus. Pulmonary: Clear to auscultation bilaterally with no crackles, wheezes, or rhonchi however exam is limited due to body habitus. Normal respiratory effort with no use of accessory muscles. Abdomen: Obese. Pannus hanging over left-side. Bowel tones were not auscultated due to body habitus. Soft, nontender, nondistended. No hepatosplenomegaly or masses could be appreciated Extremities: Bilateral lower extremity lymphedema Skin: Normal temperature, turgor, and texture; no rash, ulcers, or subcutaneous nodules appreciated. Neurological: Cranial nerves grossly intact. Normal muscle strength, tone, and bulk. Reflexes, coordination, and sensory function within normal limits. Patient is wheelchair-bound. Psychiatric: Normal mood and affect. Alert and oriented to person, place, and time. IVs and Medications Medications Reviewed: Medications were reviewed in detail Lab and Diagnostics Result Diagram: 06/30/1624906/30/16249 Microbiology Blood culture growing gram-negative rods. Urine culture growing gram-negative rods probably Proteus. Sensitivities to follow. X-Rays, CTs and MRIs X-RAY CHEST ONE VIEW, PORTABLE IMPRESSION: No acute cardiopulmonary disease. Chronic elevation of the right hemidiaphragm. Dictated by: Wellington Chiang M.D. on 06/28/2016 at 15:03 Assessment & Plan Brit Larsen is a morbidly obese 76 year old woman with past medical history significant for hypertension and pre-diabetes who presented to the [facility] ED due to a fall. Currently under treatment for sepsis secondary to pyelonephritis. Hospital day #3. Severe sepsis secondary to complicated pyelonephritis with Proteus with probable bacteremia, present on admission, improving -Patient meets SIRS criteria with HR of 100, T of 41, lactic acid of 4.2, procalcitonin of 0.77. -MRSA swab negative. Vancomycin DC'd. -Infectious disease consultation obtained. We will follow recommendations. -Ertapenem changed to oral Cipro as we have sensitivities. Defer to infectious disease for length treatment. High anion gap metabolic acidosis secondary to lactic acid, present on admission , resolved. -And gap of 23, 15 this morning Acute respiratory failure in the setting of likely chronic respiratory failure secondary to obesity hypoventilation syndrome, present on admission, resolved. -Likely her tachypnea and increased work of breathing was secondary to severe sepsis -BiPAP as needed during sleep. -Consider outpatient sleep study. Acute kidney injury secondary to severe sepsis, present on admission, improving -Prior creatinine 0.98 from 11/2015 -Continue to monitor Type II diabetes, [id number] -Continue Lantus and correctional lispro 3 times a day -Hold metformin Chronic issues: Hypertension chronic, present on admission, active -Restart home medications include: Chlorthalidone, lisinopril, atenolol -She does not appear to be very well controlled with her current antihypertensive regiment; consider switching atenolol to labetalol or carvedilol. Morbid obesity with likely obesity hypoventilation syndrome and bilateral lymphedema -Bariatric bed -Patient normally uses a wheelchair and is able to transfer herself. PT assessment to improve mobility. 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 VTE Prophylaxis: Sub-Q Heparin (Unfractionated) Resuscitation Status: DNR/DNI:Do Not Resuscitate/Intubate Attending Statement I interviewed and examined the patient on rounds today. I agree with the assessment and plan as stated above. Current focus is to mobilize patient for discharge on oral antibiotics, likely 07/01. Sadie Centeno DO June 30, 2016 13:19 Abhay Waters MD June 30, 2016 15:50
[2016-06-30 16:54] VITALS: BP 164/84; PULSE 69; RESP 21; O2SAT 94
[2016-06-30] MEDS: Pantoprazole 4 mg/mL 10 mL Inj IVPUSH SCH (16:59)
[2016-06-30 21:09] VITALS: BP 158/91; PULSE 74; O2SAT 93
[2016-06-30] MEDS: Insulin GLARgine 100 Unit/mL Syringe SUBQ SCH (21:19)
[2016-07-01 00:06] VITALS: BP 166/84; PULSE 74; O2SAT 94
[2016-07-01] MEDS: Sodium Chloride LOK Flush 10 mL Syringe IVFLUSH SCH ×3 (00:30→16:15)
[2016-07-01] MEDS: Heparin 5,000 Unit/mL Inj SUBQ SCH ×3 (01:20→16:14)
[2016-07-01 02:52] LABS: BASOPHILS % (AUTO) 0.1 % (0-3); EOSINOPHILS % (AUTO) 0.1 % (0-5); MONOCYTES % (AUTO) 16.7 % (4-12); Mean Corpuscular Hemoglobin 27.8 pg (27.0-35.0); Mean Corpuscular Volume 83.7 fL (81-100); NEUTROPHILS % (AUTO) 77.2 % (40-74); Platelet Count 232 bil/L (150-400)
[2016-07-01 04:19] VITALS: BP 142/80; PULSE 74; O2SAT 91
[2016-07-01 05:00] VITALS: PULSE 74
--- NOTE | 2016-07-01 06:36 | NUR ---
Activity/BM Pt able to help with some boosting, agreeable to some turns but not all. Pt has not had a BM since Tuesday as reported by pt. Pt states that she does not feel constipated and declines any bowel meds at this time. VSS tele SR 70's.
[2016-07-01 08:00] VITALS: BP 137/82; PULSE 71; PULSE 72; RESP 26; O2SAT 95
[2016-07-01] MEDS: Sucralfate 1,000 mg Tablet PO SCH ×3 (08:04→16:13)
[2016-07-01] MEDS: Pantoprazole 4 mg/mL 10 mL Inj IVPUSH SCH (08:04)
[2016-07-01] MEDS: Insulin LISPRO 300 Unit/3 mL Inj SUBQ SCH ×2 (08:04→11:37)
[2016-07-01] MEDS: ALPRAZolam 0.25 mg Tablet PO SCH (08:06)
--- NOTE | 2016-07-01 08:48 | PROG NOTE ---
[address] [address] PROGRESS NOTE PATIENT: GERONIMO MCDOWELL : 1940 MR#: [id number] ADMIT: 06/28/2016 JOB ID: [id number] DATE: 07/01/2016 REASON FOR FOLLOW UP: Bacteremic Proteus complicated urinary tract infection. INTERVAL HISTORY: Overnight, the patient says she is gradually feeling better. She denies any fever or chills. She states her shortness of breath is about at baseline. She denies abdominal pain, nausea, vomiting, or diarrhea. She has not yet been out of bed and still has a Vallejo catheter. PHYSICAL EXAMINATION: Reveals an afebrile woman. Temp 37, pulse 72, respiratory rate 26, blood pressure 137/82 saturating quite well on 1.5 L. She appears mildly short of breath just lying in bed, but she states this is about her baseline. Mental status is clear. Oral cavity negative. Lungs with decreased breath sounds bilaterally. Cardiac tones very distant, but regular. Abdomen is very obese, soft, and without notable organomegaly. Vallejo catheter is present and draining clear yellow urine. LABS: Fluctuating white count was 14,000 when she came in 4 days ago. It is 14,000 again today. In between it has been around 11,000. The diff shows 77% segs. Creatinine 1.18. LFTs normal. Urinalysis packed with white cells of course. Both urine and blood grew Cipro sensitive Proteus. IMAGING: No new imaging is available. 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 She has a bacteremic Proteus urinary tract infection which is quite sensitive to Cipro. Yesterday she was having diaphoresis and terrible heartburn. That is all resolved as of this morning, and she states she feels basically back to her normal state of health. She is anticipating discharge soon. Note that the EKG and troponins we did yesterday showed no evidence of acute cardiac ischemia. RECOMMENDATIONS: 1. Will continue with oral Cipro with the plan to continue for 1 more week through July 08. 2. The patient can be discharged at any time from an Infectious Disease point of view. 3. ID will go ahead and sign off at this time. Thank you very much for this consultation.
--- NOTE | 2016-07-01 10:12 | NUR ---
Social Work: Discharge D: Pt discussed in am rounds, pt is medically stable for discharge home. Per MD, pt is wheelchair bound at baseline and will require home health for physical therapy. F2F obtained by MD and orders placed to arrange for home health. ACCESS CLINICIAN met with patient at bedside to discuss discharge planning and assess for unmet needs. Pt confirms that she is wheelchair bound and that her assists her with transfers in and out of her w/c. She states that he will be transporting her home. ACCESS CLINICIAN discussed with pt recommendations for discharge home with home health for PT. She agrees with this plan. HH CHOICE LIST PROVIDED. She has no preference and agrees with referral to [facility], per vendor calendar. t/c to Douglas Mcallister with [facility] to provide referral. Access and F2F provided. A: Pt who lives with her and is w/c bound. P: Pt to discharge home with [facility] for Physical Therapy; pt's spouse to transport. CLEMENT Talley Addendum: 07/01/16 at 1255 by SEAN MARSH SS ACCESS CLINICIAN spoke with PT. Pt is unable to safely transfer to her wheelchair and is requiring max assist. Current recommendation is for SNF based on pt's decreased functional mobility. ACCESS CLINICIAN spoke with who is now ordering for ACCESS CLINICIAN to arrange for skilled rehab placement for the patient. Order received. ACCESS CLINICIAN met with pt and spouse at bedside. They are agreeable to skilled rehab placement. SNF CHOICE LIST PROVIDED. Preference is for [facility]. They do not want to provide an alternative option at this time as they want to stay in [place]. ACCESS CLINICIAN spoke with Jason at [facility] to provide referral. Access provided. He is reviewing and knows pt is ready for discharge. PPW on chart. PASSR completed. Addendum: 07/01/16 at 1352 by SEAN MARSH SS Pt has been accepted at [facility] with Dr. Boateng to follow. Transportation has been arranged for 3:00pm. Pt, spouse and bedside RN aware. Orders faxed to [facility]. Copies on chart.
[2016-07-01] MEDS ORDERED: CIPR-232 PO (10:46)
--- NOTE | 2016-07-01 10:52 | PCM.DIMED ---
JacoboSadie DO 07/01/16 1052: Discharge Instructions Date of Service July 01, 2016 Dates of Hospitalization June 28, 2016 at 16:59 Discharge Diagnosis Discharge Diagnosis Severe sepsis secondary to complicated pyelonephritis with Proteus with bacteremia, present on admission, improving High anion gap metabolic acidosis secondary to lactic acid, present on admission , resolved. Acute respiratory failure in the setting of likely chronic respiratory failure secondary to obesity hypoventilation syndrome, present on admission, resolved. 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 You will need to take this antibiotic twice a day for 7 more days. Diet Discharge Diet: Diabetic Activity Discharge Activity: Limited until seen by PCP, Home Health Phyical Therapy Call your provider Call your provider for: Shortness of breath, Chest pain Patient Instructions Patient Instructions You had a urinary tract infection. This bacteria also infected your blood. You are much better from this illness. Please follow up with your primary care doctor in about 1-2 weeks. Please complete your antibiotic course. Please continue to take all your regular medications. You should talk about possibly getting a sleep study with your primary care doctor. You will be discharged [place] a [place] so that you may get physical therapy once daily for the next 2 weeks to regain your mobility and strength. They will help you achieve her baseline of being able to transfer herself between your wheelchair. Follow-up plan Patient is being discharged [facility] due to need for physical therapy for generalized weakness secondary to bacteremia and pyelonephritis. Patient will need teaching and assessment for fall risk and fall recovery. Follow-up Provider: Josy Hines MD Follow-up with PCP in: 1 week Additional Information Patient is deemed stable for discharge due to good outpatient antibiotic regiment, resolution of sepsis. Abhay Waters MD 07/03/16 0715: Discharge Instructions Attending's Statement I interviewed and examined the patient on rounds today. I agree with the assessment and plan as stated above. Sadie Centeno DO July 01, 2016 10:52 Abhay Waters MD July 03, 2016 07:15
[2016-07-01 12:35] VITALS: BP 133/81; PULSE 76; RESP 28; O2SAT 91
[2016-07-01] MEDS ORDERED: Vancomycin Serum Trough XX ONE (16:00)
--- NOTE | 2016-07-01 17:44 | NUR ---
Discharge per Case management cabulance will be here at 1600. Ride from [facility] here approx 1715. patient is up with physical therapy to wheel chair using lift. IV discontinued to left arm with out difficulty. patient left unit approx 1730 via wheel chair with ride from [facility] care. Report given to nurse Shelton at [facility]. patient denies pain or discomfort prior to discharge. Oxygen room air 89-90%. patient left unit with 1.5L nasal cannula oxygen with tank. Charge nurse aware. Case management aware.
--- NOTE | 2016-07-02 18:24 | PCM.DC.MED ---
Discharge Summary Date of Service July 02, 2016 Dates of Hospitalization Date of Hospital Admission June 28, 2016 at 16:59 Date of Discharge: July 01, 2016 Providers: Admitting Physician: Abhay Waters MD Primary Care Physician: Josy Hines MD Attending Physician: Abhay Waters MD Diagnosis at Time of Discharge Diagnosis at Time of Discharge Severe sepsis secondary to complicated pyelonephritis with Proteus with bacteremia, present on admission, improving High anion gap metabolic acidosis secondary to lactic acid, present on admission , resolved. Acute respiratory failure in the setting of likely chronic respiratory failure secondary to obesity hypoventilation syndrome, present on admission, resolved. 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 Chronic elevation of the right hemidiaphragm. Dictated by: Wellington Chiang M.D. on 06/28/2016 at 15:03 Brief History Brit Larsen is a morbidly obese 76 year old woman with past medical history significant for hypertension and pre-diabetes who presented to the [facility] ED due to a fall today. The patient is accompanied by her who assisted in history gathering. The patient states that she has felt sick for the last several days and has been feeling run down and weak. She is normally wheelchair bound due to bilateral knee replacements that are in poor repair. The patient is usually able to transition from her wheelchair by herself but in the last several days the patient has not been able to do so. The patient noted a subjective fever this morning as well as dyspnea and diaphoresis this morning. She also noted abdominal pain that was worst in her pelvis. She did note back pain, but this is chronic for her. She denied any dysuria. The patient denies any chest pain, palpitations, skin rashes. She denies any sick contacts. In the ED her vitals showed an elevated temperature of 41 C, pulse of 100, respiratory rate of 26 with good O2 saturation on room air. The patient appeared in respiratory distress and was placed on BPAP. She was also given ceftriaxone and azithromycin for a presumed PNA. Hospital Course Brit Larsen is a morbidly obese 76 year old woman with past medical history significant for hypertension and pre-diabetes who presented to the [facility] ED due to a fall. Currently under treatment for sepsis secondary to pyelonephritis. Hospital day #3. Severe sepsis secondary to complicated pyelonephritis with Proteus with probable bacteremia, present on admission, improving -Patient met SIRS criteria with HR of 100, T of 41, lactic acid of 4.2, procalcitonin of 0.77. -MRSA swab negative. Vancomycin DC'd. -Infectious disease consultation obtained. -Ertapenem changed to oral Cipro for 7 more days High anion gap metabolic acidosis secondary to lactic acid, present on admission , resolved. -And gap of 23, 15 on recheck Acute respiratory failure in the setting of likely chronic respiratory failure secondary to obesity hypoventilation syndrome, present on admission, resolved. -Likely her tachypnea and increased work of breathing was secondary to severe sepsis -BiPAP as needed during sleep. -Consider outpatient sleep study. Acute kidney injury secondary to severe sepsis, present on admission, improving -Prior creatinine 0.98 from 11/2015 -Continued to monitor Type II diabetes, [id number] -Continued Lantus and correctional lispro 3 times a day -Held metformin Chronic issues: Hypertension chronic, present on admission, active -Restarted home medications including: Chlorthalidone, lisinopril, atenolol -She did not appear to be very well controlled with her current antihypertensive regiment; consider switching atenolol to labetalol or carvedilol. Morbid obesity with likely obesity hypoventilation syndrome and bilateral lymphedema -Bariatric bed -Patient normally uses a wheelchair and is able to transfer herself. PT assessment to improve mobility. 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 Exam Vital Signs (Last) Date Time Temp Pulse Resp B/P Pulse Ox O2 Delivery O2 Flow Rate FiO2 07/01/16 17:41 Supplement Oxygen 07/01/16 12:35 36.8 76 28 133/81 91 2.50 06/28/16 14:30 40 Exam General: No acute distress, obese woman laying in hospital bed. HEENT: Normocephalic, atraumatic. External ears without defect. Pupils equal, round, and reactive to light and accommodation. Anicteric sclerae, moist conjunctivae, and no lid lag. Oropharynx free of erythema and cobble stoning with moist mucosa. Neck: Supple with full range of motion. No jugular venous distension however exam is limited due to body habitus. No lymphadenopathy or thyromegaly. Cardiovascular: Distant heart sounds, no obvious murmurs appreciated, however exam is limited due to body habitus. Pulmonary: Clear to auscultation bilaterally with no crackles, wheezes, or rhonchi however exam is limited due to body habitus. Normal respiratory effort with no use of accessory muscles. Abdomen: Obese. Pannus hanging over left-side. Bowel tones were not auscultated due to body habitus. Soft, nontender, nondistended. No hepatosplenomegaly or masses could be appreciated Extremities: Bilateral lower extremity lymphedema Skin: Normal temperature, turgor, and texture; no rash, ulcers, or subcutaneous nodules appreciated. Neurological: Cranial nerves grossly intact. Normal muscle strength, tone, and bulk. Reflexes, coordination, and sensory function within normal limits. Patient is wheelchair-bound. Psychiatric: Normal mood and affect. Alert and oriented to person, place, and time. Test 06/28/16 14:23 06/28/16 14:33 06/28/16 15:00 06/28/16 15:13 Pro-B-Type Natriuretic Peptide 1376pg/mL (0-738) Procalcitonin 0.77ng/mL (0.00-0.08) Hemoglobin A1c 6.3% (4.8-5.6) Urine Legionella pneumophilia Ag Negative (Negative) Urine Color Yellow (YELLOW) Urine Appearance Cloudy (CLEAR,HAZY) Urine pH 6.5 (5.0-8.0) Urine Specific [place] 1.020 (1.003-1.035) Urine Protein 300mg/dL (NEG,TRACE) Urine Glucose (UA) Negativemg/dL (NEGATIVE) Urine Ketones Negativemg/dL (NEGATIVE) Urine Occult Blood Large (NEGATIVE) Urine Nitrite Negative (NEGATIVE) Urine Bilirubin Negative (NEGATIVE) Urine Urobilinogen Normalmg/dL (NORMAL) Urine Leukocyte Esterase Large (NEGATIVE) Urine RBC 3-10/hpf (0-2) Urine WBC >50/hpf (0-5) Urine Epithelial Cells Occasional/hpf (NONE-MOD) Urine Crystals None seen (NONE SEEN) Urine Bacteria Few/hpf (NONE-FEW) Urine Hyaline Casts None/lpf (NONE) Urine Granular Casts None seen (NONE SEEN) Urine Waxy Casts None seen (NONE SEEN) Urine Red Blood Cell Casts None seen (NONE SEEN) Urine White Blood Cell Casts None seen (NONE SEEN) Urine Mucus None seen (None Seen) Urine Trichomonas None seen (NONE SEEN) Urine Yeast None (NONE SEEN) Urinalysis Comment None Urine Culture Reflexed Indicated Test 06/28/16 18:18 06/29/16 03:30 06/30/16 02:50 06/30/16 12:30 Lactic Acid Level 1.7mmol/L (0.4-2.0) Magnesium Level 2.0mg/dL (1.6-2.6) Total Bilirubin 0.3mg/dL (0.0-1.2) Aspartate Amino Transf (AST/SGOT) 30U/L (0-50) Alanine Aminotransferase (ALT/SGPT) 20U/L (0-32) Alkaline Phosphatase 55U/L (25-165) Total Protein 6.3g/dL (6.4-8.4) Albumin 3.5g/dL (3.4-5.0) Troponin T < 0.010ug/L (0.0-0.011) Test 07/01/16 02:31 White Blood Count 14.6th/mm3 (3.8-10.1) Red Blood Count 4.49mil/mm3 (3.90-5.20) Hemoglobin 12.5g/dL (12.0-15.6) Hematocrit 37.6% (35.0-46.0) Mean Corpuscular Volume 83.7fL (81-100) Mean Corpuscular Hemoglobin 27.8pg (27.0-35.0) Mean Corpuscular Hemoglobin Concent 33.2% (32.0-37.0) Red Cell Distribution Width 14.4% (12.3-15.4) Platelet Count 232bil/L (150-400) Neutrophils (%) (Auto) 77.2% (40-74) Lymphocytes (%) (Auto) 5.5% (14-46) Monocytes (%) (Auto) 16.7% (4-12) Eosinophils (%) (Auto) 0.1% (0-5) Basophils (%) (Auto) 0.1% (0-3) Sodium Level 134mEq/L (134-144) Potassium Level 4.1mEq/L (3.5-5.2) Chloride Level 97mEq/L (97-108) Carbon Dioxide Level 21mmol/L (18-29) Blood Urea Nitrogen 33mg/dL (8-27) Creatinine 1.18mg/dL (0.57-1.00) Estimat Glomerular Filtration Rate 63mL/min (>59) Glucose Level 178mg/dL (60-99) Calcium Level 8.7mg/dL (8.5-10.1) Microbiology Results Blood culture growing gram-negative rods. Urine culture growing gram-negative rods probably Proteus. Sensitivities to follow. Discharge Medications Discharge Medications Aspirin (Aspirin) 325 Mg Tablet 325 MG PO DAILY (Reported) Atenolol (Atenolol) 25 Mg Tablet 25 MG PO DAILY (Reported) Atenolol (Atenolol) 25 Mg Tablet 50 MG PO QPM (Reported) Atorvastatin Calcium (Atorvastatin Calcium) 80 Mg Tablet 80 MG PO HS (Reported) Chlorthalidone (Chlorthalidone) 25 Mg Tablet 25 MG PO DAILY (Reported) Cholecalciferol (Vitamin D3) (Vitamin D3) 5,000 Unit Tablet 5,000 UNIT PO DAILY (Reported) Ciprofloxacin (Cipro) 250 Mg Tablet 750 MG PO BID Prescribed by: MILAGROS SIMS DO Citalopram (Citalopram) 40 Mg Tablet 40 MG PO DAILY (Reported) Cranberry Extract (Cranberry) 250 Mg Capsule 250 MG PO DAILY (Reported) Cyanocobalamin/Folic Acid (Vitamin M25-Deyiy Acid Tablet) 1 Each Tablet 1 EACH PO DAILY (Reported) Gluc 2Kcl/Chondr/Jacinto Hy/Hy AC (Glucosamine & Chondroitin Cap) 1 Each Capsule 1 EACH PO DAILY (Reported) Levothyroxine (Levothyroxine) 150 Mcg Tablet 150 MCG PO DAILY (Reported) Lisinopril (Lisinopril) 40 Mg Tablet 40 MG PO DAILY (Reported) Metformin (Metformin) 500 Mg Tablet 1,000 MG PO QAM (Reported) Metformin (Metformin) 500 Mg Tablet 1,500 MG PO QPM (Reported) As needed Alprazolam (Alprazolam) 0.25 Mg Tablet 0.125 MG PO BID PRN PRN For Anxiety or Agitation (Reported) Loratadine (Claritin) 10 Mg Capsule 10 MG PO DAILY PRN PRN allergies (Reported) Ranitidine (Ranitidine) 300 Mg Tablet 300 MG PO HS PRN PRN For Dyspepsia or Heartburn (Reported) Triamcinolone Acetonide (Nasacort) 10.8 Ml [place] 1 SPRAY NOSTRIL DAILY PRN PRN allergies (Reported) Additional med instructions The only medication that was changed for you is a pill antibiotic. You will need to take this antibiotic twice a day for 7 more days. Followup Plan Follow-up plan Patient is being discharged to care home facility due to need for physical therapy for generalized weakness secondary to bacteremia and pyelonephritis. Patient will need teaching and assessment for fall risk and fall recovery. Discharge Diet: Diabetic Discharge Activity: Limited until seen by PCP, Home Health Phyical Therapy Patient Instructions You had a urinary tract infection. This bacteria also infected your blood. You are much better from this illness. Please follow up with your primary care doctor in about 1-2 weeks. Please complete your antibiotic course. Please continue to take all your regular medications. You should talk about possibly getting a sleep study with your primary care doctor. You will be discharged to a care home facility so that you may get physical therapy once daily for the next 2 weeks to regain your mobility and strength. They will help you achieve her baseline of being able to transfer herself between your wheelchair. Follow-up Provider: Josy Hines MD Follow-up with PCP in: 1 week Attending Statement I interviewed and examined the patient on rounds today. I agree with the assessment and plan as stated above. copies to: Josy Hines MD, Viktoriya DO July 02, 2016 18:24 Abhay Waters MD July 03, 2016 07:23
== END 2016-07-01 17:26 | DRG 871 ==
LOC: SED 14:15 → PCC 16:59
PROVIDERS: ADMIT Internal Medicine; ATTEND Internal Medicine
PROC: 4A033B1 Measurement of Arterial Pressure, Peripheral, Percutaneous Approach (ICD-10-PCS; principal; 2016-06-28)
PROC: 5A09357 Assistance with Respiratory Ventilation, Less than 24 Consecutive Hours, Continuous Positive Airway Pressure (ICD-10-PCS; 2016-06-28)
DX: A41.89 Other specified sepsis (principal); J96.20 Acute and chronic respiratory failure, unspecified whether with hypoxia or hypercapnia; N39.0 Urinary tract infection, site not specified; N17.8 Other acute kidney failure; E66.2 Morbid (severe) obesity with alveolar hypoventilation; Z68.43 Body mass index [BMI] 50.0-59.9, adult; E87.2 Acidosis; N10 Acute pyelonephritis; R65.20 Severe sepsis without septic shock; B96.4 Proteus (mirabilis) (morganii) as the cause of diseases classified elsewhere; I10 Essential (primary) hypertension; Z96.653 Presence of artificial knee joint, bilateral; E11.9 Type 2 diabetes mellitus without complications; E03.9 Hypothyroidism, unspecified; Z66 Do not resuscitate; Z79.84 Long term (current) use of oral hypoglycemic drugs; Z79.82 Long term (current) use of aspirin; Z99.3 Dependence on wheelchair; Z87.891 Personal history of nicotine dependence